=== PATIENT | male | born 1940 | race Asian ===

== ENCOUNTER 2022-03-31 16:26 | Emergency (ER) | payer OTHER, MEDICAID ==
[~2022-03-31] VITALS: Ht 172.7 cm; Wt 59.0 kg
--- NOTE | 2022-03-31 16:26 | NUR ---
[facility] TO ER BED 1
--- NOTE | 2022-03-31 16:30 | NUR ---
FIRST CONTACT WITH PT, BIB EMS, UNWITNESSED SYNCOPAL EPISODE. +LANGUAGE BARRIER, PT SPEAKS CHINESES CANTONESE. C COLLAR PLACED ON PT UPON ARRIVAL
[2022-03-31] MEDS ORDERED: NACL 0.9% 1,000 ML IV SCH (16:35)
[2022-03-31] MEDS ORDERED: cefTRIAXone 1,000 MG in DEXT 5% MINI-BAG PLUS 50 ML IV ONE (16:35)
[2022-03-31 16:37] VITALS: BP 134/71
--- NOTE | 2022-03-31 16:45 | NUR ---
AT BEDSIDE. SUPERVISOR PLASTICS LINE USED, TOBACCO SWEEPER [id number].
[2022-03-31 16:59] LABS: BASOPHILS % (AUTO) 1.1 % (0.0-2.0); EOSINOPHILS # (AUTO) 0.1 K/uL (0-0.4); EOSINOPHILS % (AUTO) 1.5 % (0.0-4.0); HEMATOCRIT 33.5 % (36-52); HEMOGLOBIN 11.2 g/dL (12.0-18.0); LYMPHOCYTES # (AUTO) 0.6 K/uL (2.0-11.5); LYMPHOCYTES % (AUTO) 14.3 % (20.5-51.1); MEAN CORPUSCULAR HEMOGLOBIN 29 pg (27-31); MEAN CORPUSCULAR HGB CONC 34 g/dL (33-37); MEAN CORPUSCULAR VOLUME 87.2 fL (80-94); MONOCYTES # (AUTO) 0.9 K/uL (0.8-1.0); MONOCYTES % (AUTO) 20.2 % (1.7-9.3); NEUTROPHILS # (AUTO) 2.7 K/uL (1.8-7.7); NEUTROPHILS % (AUTO) 62.9 % (42.2-75.2); PLATELET COUNT (AUTO) 175 K/uL (140-450); RED BLOOD CELL COUNT(AUTO) 3.84 MIL/uL (4.20-6.10); RED CELL DISTRIBUTION WIDTH 14.9 % (11.6-13.7); WHITE BLOOD COUNT (AUTO) 4.3 K/uL (4.8-10.8)
--- NOTE | 2022-03-31 17:00 | NUR ---
BIB EMS FROM HOME WITH C/O NEAR SYNCOPE/SYNCOPE. PER INTERNET APPLICATION DEVELOPER, STATES PT DID NOT FALL BUT WAS VERY DIZZY. PT ALSO REPORTS R SIDED INTERMITTENT CHEST PAIN. PT WAS HYPOTENSIVE IN THE FIELD WHICH IS NOW RESOLVED. PT IS ARMENIAN CANTONESE SPEAKING ONLY. AT BEDSIDE. NO OBVIOUS SIGNS OF TRAUMA. REPORTS HX LUNG CA. STATES PTIS ON HOME 02 WHEN HE GETS SOB. PT WAS SATING 92-93% ON ROOM AIR, PLACED ON 2LNC, SATS IMPROVED TO 96-97%. SINUS TACH ON THE MONITOR. WILL CONT TO MONITOR
--- NOTE | 2022-03-31 17:11 | NUR ---
PT RECEIVED 1L NS BOLUS VIA EMS. INFORMED AND 1L NS BOLUS CANCELLED BY
[2022-03-31 17:13] LABS: ALBUMIN 2.7 g/dL (3.4-5.0); ANION GAP 11.4 (8-16); ASPARTATE AMINOTRANSFERASE 30 U/L (15-37); CARBON DIOXIDE 25.3 mmol/L (21-32); CHLORIDE 107 mmol/L (98-107); CREATININE 0.7 mg/dL (0.6-1.3); GLUCOSE 119 mg/dL (74-106); SODIUM SERUM 141 mmol/L (136-145); TOTAL BILIRUBIN 1.1 mg/dL (0.0-1.0); UREA NITROGEN, BLOOD 11 mg/dL (7-18)
[2022-03-31] MEDS ORDERED: cefTRIAXone 1,000 MG VIAL ONE (17:18)
[2022-03-31 17:19] LABS: POTASSIUM 2.7 mmol/L (3.5-5.1)
[2022-03-31] MEDS ORDERED: POTASSIUM CHL 20 MEQ/NACL 0.9% 1,000 ML IV ONE (17:20)
--- NOTE | 2022-03-31 17:33 | NUR ---
PT SENT TO CT WITH TECH VIA BED
--- NOTE | 2022-03-31 17:43 | NUR ---
PT RETURNED FROM CT. C SPINE PRECAUTIONS MAINTAINED
--- NOTE | 2022-03-31 17:43 | NUR ---
FAMILY CONTACT DIRK (GRANDDAUGHTER) [phone]
[2022-03-31 18:55] LABS: APPEARANCE,URINE CLEAR (CLEAR); BILIRUBIN,URINE 1+ (NEGATIVE); BLOOD, URINE NEGATIVE (NEGATIVE); COLOR,URINE YELLOW (YELLOW); LEUKOCYTE ESTERASE ,URINE NEGATIVE (NEGATIVE); NITRITE, URINE NEGATIVE (NEGATIVE); PH,URINE 7.5 (5.0-9.0); UGLUCOSE NEGATIVE (NEGATIVE)
--- NOTE | 2022-03-31 19:21 | NUR ---
REPORT GIVEN TO GEORGE SAM
--- NOTE | 2022-03-31 20:00 | NUR ---
SPOKE WITH GRAND DAUGHTER AND SHE WAS ABLE TO INTERPRET FOR THE PATIENT THAT HE WILL BE ADMITTED, PT HX AND MEDS.
--- NOTE | 2022-03-31 20:02 | NUR ---
UNABLE TO OBTAIN MED REC DUE TO PT NOT REMEMBERING MEDS AND FAMILY DOES NOT HAVE THE MEDS IN THEIR POSSESSION
--- NOTE | 2022-03-31 20:03 | NUR ---
FLU SWABS COLLECTED AND SENT TO LAB
--- NOTE | 2022-04-01 00:01 | NUR ---
PT SLEEPING. NO COMPLAINT.
--- NOTE | 2022-04-01 02:29 | NUR ---
CHANGED PT'S DIAPER AND LINENS. PT UNCOMFORTABLE. GIVEN MORE BLANKETS, NO FEVER.
[2022-04-01] MEDS ORDERED: POTASSIUM CHLORIDE 10 MEQ TABER PO ONE (02:30)
[2022-04-01] MEDS ORDERED: levETIRAcetam 1,000 MG in NACL 0.9% 100 ML IV ONE (02:30)
[2022-04-01] MEDS ORDERED: DEXAMETHASONE 10 MG/ML VIAL IVP ONE (02:30)
[2022-04-01] MEDS ORDERED: levETIRAcetam 100 MG/ML VIAL IV ONE (02:38)
--- NOTE | 2022-04-01 06:00 | NUR ---
FAMILY INFORMED THAT PT WILL BE TRANSFERED TO [facility] UPON BED AVAILABILITY DIRK [employer]) [phone] Addendum: 04/01/22 at 0652 by [email or web address] INSURANCE CHANGED TRANSFER DESTINATION FROM [facility] TO [facility]. PT FAMILY NOTIFIED VIA VOICEMAIL. DIRK
--- NOTE | 2022-04-01 07:04 | NUR ---
ATTEMPTED TO CALL [facility] TO GIVE REPORT. "NURSES ARE BUSY RECIEVING TRANSFER OF CARE REPORT." , TELE BEB [id number]
--- NOTE | 2022-04-01 07:15 | NUR ---
reeived report from Nishant SAM. patient calm and resting. vitals stable, aaox3, NAD, on 2L NC satting 98%, NSR, iv patent.
--- NOTE | 2022-04-01 07:20 | NUR ---
GAVE TRANSFER OF CARE REPORT TO FLACO ZUÑIGA
--- NOTE | 2022-04-01 07:57 | NUR ---
gave report to Fiot SAM at [facility] [place] [facility]. [facility].
[2022-04-01 07:58] VITALS: BP 128/77
== END 2022-04-01 07:59 | disposition short-term general hospital (02) ==
LOC: MED 16:26
DX: U07.1 COVID-19 (principal); I95.9 Hypotension, unspecified; E87.6 Hypokalemia; J12.89 Other viral pneumonia; R93.0 Abnormal findings on diagnostic imaging of skull and head, not elsewhere classified; M54.2 Cervicalgia; Z85.118 Personal history of other malignant neoplasm of bronchus and lung
CPT/HCPCS: 36415; 70450; 71045; 72125; 80053; 81003; 83605; 83880; 84484; 85025; 87040; 87086; 87426; 87804; 93005; 96365; 96366; 96367; 96368; 96375; 99285; J0696; J1100; J1953